=== PATIENT | male | born 1950 | race Caucasian/White ===

== ENCOUNTER 2018-09-24 11:07 | Emergency (ER) | payer BC, MEDICARE ==
[2018-09-24 11:07] LABS: ABSOLUTE LYMPHOCYTES (AUTO) 0.7 10^3/uL (0.5-4.7); ABSOLUTE MONOCYTES (AUTO) 0.7 10^3/uL (0.1-1.4); ABSOLUTE NEUT (AUTO) 5.4 10^3/uL (1.7-8.2); BASOPHILS % (AUTO) 0.6 % (0-2); LYMPHOCYTES % (AUTO) 10.5 % (13-45); MEAN CORPUSCULAR HEMOGLOBIN 29.6 pg (27.0-33.4); MEAN CORPUSCULAR VOLUME 85 fl (80-97); MONOCYTES % (AUTO) 9.7 % (3-13); PLATELET COUNT 194 10^3/uL (150-450); RED BLOOD COUNT 4.73 10^6/uL (4.35-5.55); RED CELL DISTRIBUTION WIDTH 14.5 % (11.5-14.0); SEGMENTED NEUTROPHILS % (AUTO) 79.2 % (42-78); TOTAL CELLS COUNTED % (AUTO) 100 %; WHITE BLOOD COUNT 6.8 10^3/uL (4.0-10.5)
[2018-09-24 11:27] LABS: ALANINE AMINOTRANSFERASE 66 U/L (21-72); ALBUMIN 4.2 g/dL (3.5-5.0); ALKALINE PHOSPHATASE 47 U/L (38-126); ANION GAP 9 (5-19); ASPARTATE AMINO TRANSFERASE 39 U/L (17-59); BILIRUBIN,DIRECT 0.3 mg/dL (0.0-0.4); BILIRUBIN,TOTAL 1.4 mg/dL (0.2-1.3); BLOOD UREA NITROGEN 19 mg/dL (7-20); CALCIUM 9.3 mg/dL (8.4-10.2); CARBON DIOXIDE 26 mmol/L (22-30); CHLORIDE 98 mmol/L (98-107); GLUCOSE 117 mg/dL (75-110); POTASSIUM 4.2 mmol/L (3.6-5.0); SODIUM 133.4 mmol/L (137-145); TOTAL PROTEIN 6.7 g/dL (6.3-8.2)
[2018-09-24] MEDS ORDERED: ONDANSETRON HCL INJ/PF 4 MG/2 ML SDV IV ONE (11:48)
--- NOTE | 2018-09-24 11:48 | ER Document Report ---
ED Medical Screen (RME) - General Chief Complaint: Nausea/Vomiting Stated Complaint: NAUSEA Time Seen by Provider: 09/24/18 11:36 TRAVEL OUTSIDE OF THE [place] IN LAST 30 DAYS: No - HPI Notes: 09/24/18 11:45 Patient is a 67-year-old male with a history of hypertension and anxiety who presents to the emergency department complaining of fatigue, weakness, nausea/vomiting, decreased p.o. intake, intermittent fever/headache over the past 5 days. Patient states that he is not urinating as much but is still having bowel movements. He was able to keep down chicken noodle soup yesterday. Patient is a surgical history of cholecystectomy. Denies drug allergies. Denies neck pain, URI, CP, SOB, Abd pain, or rash. I have treated and performed a rapid initial assessment of this patient. A comprehensive ED assessment and evaluation of the patient, analysis of test results and completion of medical decision making process will be conducted by additional ED providers. PHYSICAL EXAMINATION: GENERAL: Well-appearing, well-nourished and in no acute distress. A&Ox4. Answers questions appropriately. LUNGS: Breath sounds clear to auscultation bilaterally and equal. No wheezes rales or rhonchi. HEART: Regular rate and rhythm without murmurs, rubs, gallops. ABDOMEN: Soft, nondistended abdomen. No guarding, no rebound. Normal bowel sounds present. No CVA tenderness bilaterally. Non-tender (cannot elicit thorough abd exam w/o table, however). Extremities: No cyanosis, clubbing, or edema b/l. NEUROLOGICAL: Normal speech, normal gait. Cranial nerves grossly intact. PSYCH: Normal mood, normal affect. - Related Data Allergies/Adverse Reactions: No Known Allergies Allergy (Verified 09/24/18 11:10) Past Medical History - Social History Frequency of alcohol use: Social Drug Abuse: None - Past Medical History Cardiac Medical History: Reports: Hx Hypertension Renal/ Medical History: Denies: Hx Peritoneal Dialysis Psychiatric Medical History: Reports: Hx Depression Past Surgical History: Reports: Hx Cholecystectomy, Hx Orthopedic Surgery - right wrist, right hand 4th digit mass removal Physical Exam - Vital signs Vitals: Temp Pulse Resp BP Pulse Ox 99.0 F 78 17 136/70 H 99 09/24/18 11:19 09/24/18 11:19 09/24/18 11:19 09/24/18 11:19 09/24/18 11:19 Course - Vital Signs Vital signs: Temp Pulse Resp BP Pulse Ox 99.0 F 78 17 136/70 H 99 09/24/18 11:19 09/24/18 11:19 09/24/18 11:19 09/24/18 11:19 09/24/18 11:19 - Laboratory Result Diagrams: 09/24/18 10:48 09/24/18 10:48 Laboratory results interpreted by me: 09/24/18 09/24/18 10:48 10:48 RDW 14.5 H Seg Neutrophils % 79.2 H Lymphocytes % 10.5 L Sodium 133.4 L Glucose 117 H Total Bilirubin 1.4 H
--- NOTE | 2018-09-24 12:22 | RADIOLOGY REPORT (SQ) ---
EXAM DESCRIPTION: CHEST 2 VIEWS COMPLETED DATE/TIME: 09/24/2018 11:55 am REASON FOR STUDY: intermittent fever COMPARISON: None. EXAM PARAMETERS: NUMBER OF VIEWS: two views TECHNIQUE: Digital Frontal and Lateral radiographic views of the chest acquired. RADIATION DOSE: NA LIMITATIONS: none FINDINGS: LUNGS AND PLEURA: No opacities, masses or pneumothorax. No pleural effusion. MEDIASTINUM AND HILAR STRUCTURES: No masses or contour abnormalities. HEART AND VASCULAR STRUCTURES: Heart normal size. No evidence for failure. BONES: No acute findings. HARDWARE: None in the chest. OTHER: No other significant finding. IMPRESSION: NO ACUTE RADIOGRAPHIC FINDING IN THE CHEST. TECHNICAL DOCUMENTATION: JOB ID: [id number] [employer]- All Rights Reserved Reading location - IP/workstation name: [email or web address]
[2018-09-24] MEDS: NORMAL SALINE 1000 ML 1,000 ML IV PRN ×2 (12:48→14:15)
[2018-09-24 13:04] LABS: APPEARANCE,URINE SLIGHTLY-CLOUDY; BILIRUBIN,URINE NEGATIVE (NEGATIVE); COLOR,URINE DARK YELLOW; GLUCOSE, URINE NEGATIVE (NEGATIVE); KETONES,URINE TRACE mg/dL (NEGATIVE); LEUKOCYTE ESTERASE,URINE NEGATIVE (NEGATIVE); NITRITE,URINE NEGATIVE (NEGATIVE); PROTEIN,URINE 30 mg/dL (NEGATIVE); URINE SPECIFIC GRAVITY 1.026
--- NOTE | 2018-09-24 13:17 | RADIOLOGY REPORT (SQ) ---
EXAM DESCRIPTION: CT HEAD WITHOUT COMPLETED DATE/TIME: 09/24/2018 12:40 pm REASON FOR STUDY: headache R11.2 NAUSEA WITH VOMITING, UNSPECIFIED R51 HEADACHE R50.9 FEVER, UNSP ECIFIED COMPARISON: None. TECHNIQUE: Axial images acquired through the brain without intravenous contrast. Images reviewed wi th bone, brain and subdural windows. Additional sagittal and coronal reconstructions were generated. Images stored on PACS. All CT scanners at this facility use dose modulation, iterative reconstruction, and/or weight based d osing when appropriate to reduce radiation dose to as low as reasonably achievable (ALARA). [facility]: Dose Right [facility]: CareDose [facility]: Dose Right [facility]: Teradose 4D [facility]: [employer] RADIATION DOSE: CT Rad equipment meets quality standard of care and radiation dose reduction techniq ues were employed. CTDIvol: 53.2 mGy. DLP: 1230 mGy-cm.. LIMITATIONS: None. FINDINGS: VENTRICLES: Mildly prominent, commensurate with the sulci. The cisterns are patent. CEREBRUM: No masses. No hemorrhage. No midline shift. No evidence for acute infarction. Normal gra y/white matter differentiation. No areas of low density in the white matter. CEREBELLUM: A low attenuated area in the lateral aspect of the right cerebellar hemisphere, probably represents remote changes related to the patient's given history of removal of posterior fossa mass. No masses. No hemorrhage. No evidence for acute infarction. EXTRAAXIAL SPACES: No fluid collections. No masses. ORBITS AND GLOBE: No intra- or extraconal masses. Normal contour of globe without masses. CALVARIUM: Post surgical changes with metallic plate and screws, posterior fossa on the left. PARANASAL SINUSES: Mild mucoperiosteal thickening ethmoid sinuses. Mucous retention cyst or polyps in the bilateral maxillary sinuses. No air-fluid levels. Soft tissue density partially obscures the bilateral maxillary infundibulum, may be on an inflammatory basis. SOFT TISSUES: No mass or hematoma. OTHER: No other significant finding. IMPRESSION: 1. No acute intracranial abnormality. 2. Post surgical changes with hardware right posterior fossa. A low attenuated area in the lateral aspect of the right cerebellar hemisphere, probably represents remote changes related to the patient' s given history of removal of posterior fossa mass. 3. Chronic ethmoid sinus disease. Bilateral maxillary sinus mucous retention cysts or polyps. EVIDENCE OF ACUTE STROKE: NO. COMMENT: Quality ID # [id number]: Final reports with documentation of one or more dose reduction techniques (e.g., Automated exposure control, adjustment of the mA and/or kV according to patient size, use of iterative reconstruction technique) TECHNICAL DOCUMENTATION: JOB ID: [id number] [employer]- All Rights Reserved Reading location - IP/workstation name: [email or web address]
[2018-09-24] MEDS ORDERED: ACETAMINOPHEN 325 MG TABLET ONE (13:41)
--- NOTE | 2018-09-24 14:09 | ER Document Report ---
ED General - General Chief Complaint: Nausea/Vomiting Stated Complaint: NAUSEA Time Seen by Provider: 09/24/18 11:36 Primary Care Provider: EVA POMPA MD [ACTIVE STAFF] - Follow up in 3-5 days (or your primary care) Notes: Patient is a 67-year-old male that presents to the emergency department for chief complaint of generalized weakness. Patient reports that he has been having nausea and vomiting past couple days, and it started this past Monday, has been overall feeling weaker, and feel that he is getting dehydrated, he said some decrease in his urination, and seem to be darker as well. Denies having any associated abdominal pain or diarrhea with this. He denies having any chest pain, shortness of breath or difficulty breathing. He did have somewhat of a mild headache, but that is since resolved after he received some fluids from triage. Past Medical History: Anxiety Past Surgical History: Brain surgery 3 years ago for meningioma Social History: Denies tobacco, alcohol or drug use. Family History: Reviewed and noncontributory for presenting illness Allergies: Reviewed, see documented allergy list. REVIEW OF SYSTEMS: Other than noted above, the 12 point review of systems was reviewed with the patient and were negative, all pertinent findings are included in the HPI. PHYSICAL EXAMINATION: Vital signs reviewed, nursing noted reviewed. GENERAL: Well-appearing, well-nourished and in no acute distress. HEAD: Atraumatic, normocephalic. EYES: Eyes appear normal, extraocular movements intact, sclera anicteric, conjunctiva are normal. ENT: nares patent, oropharynx clear without exudates. Moist mucous membranes. NECK: Normal range of motion, supple without lymphadenopathy LUNGS: Breath sounds clear to auscultation bilaterally and equal. No wheezes rales or rhonchi. HEART: Regular rate and rhythm without murmurs ABDOMEN: Soft, nontender, normoactive bowel sounds. No rebound, guarding, or rigidity. No masses appreciated. EXTREMITIES: Nontender, good range of motion, no pitting or edema. NEUROLOGICAL: No focal neurological deficits. Moves all extremities spontan eously Motor and sensory grossly intact on exam. PSYCH: Normal mood, normal affect. SKIN: Warm, Dry, normal turgor, no rashes or lesions noted on exposed skin TRAVEL OUTSIDE OF THE [place] IN LAST 30 DAYS: No - Related Data Allergies/Adverse Reactions: No Known Allergies Allergy (Verified 09/24/18 11:10) Past Medical History - Social History Smoking Status: Never Smoker Frequency of alcohol use: Social Drug Abuse: None Family History: Reviewed & Not Pertinent Patient has suicidal ideation: No Patient has homicidal ideation: No - Past Medical History Cardiac Medical History: Reports: Hx Hypertension Renal/ Medical History: Denies: Hx Peritoneal Dialysis Psychiatric Medical History: Reports: Hx Depression Past Surgical History: Reports: Hx Cholecystectomy, Hx Orthopedic Surgery - right wrist, right hand 4th digit mass removal Physical Exam - Vital signs Vitals: Temp Pulse Resp BP Pulse Ox 99.0 F 78 17 136/70 H 99 09/24/18 11:19 09/24/18 11:19 09/24/18 11:19 09/24/18 11:19 09/24/18 11:19 Course - Re-evaluation Re-evalutation: Patient seen and examined vital signs reviewed. Laboratory data and/or imaging were ordered as appropriate for the patient's presenting symptoms and complaint, with consideration of any critical or life threatening conditions that may be associated with their obtained history and exam as noted above. Patient was treated with IV fluids Results were reviewed when available and demonstrated unremarkable workup with exception of a mild hyponatremia, and concentrated urine, consistent with dehydration The patient was re-evaluated and was improved, after fluid treatment Evaluation was most consistent with mild dehydration without acute kidney injury, patient was improved after treatment, likely related to his nausea and vomiting that he was having, advised strict return precautions and follow-up with a primary care physician. Results were discussed with the patient at this point, after careful consideration I feel that that patient can be discharged from the emergency department, the patient was educated treatments and reasons to return to the emergency department based on their presumed diagnosis as noted above, they were advised to followup with a primary care physician in 2-3 days. Patient was agree able to plan of care. *Note is created using voice recognition software and may contain spelling, s yntax or grammatical errors. Laboratory 09/24/18 09/24/18 09/24/18 10:48 10:48 10:48 WBC 6.8 RBC 4.73 Hgb 14.0 Hct 40.0 MCV 85 MCH 29.6 MCHC 35.0 RDW 14.5 H Plt Count 194 Seg Neutrophils % 79.2 H Lymphocytes % 10.5 L Monocytes % 9.7 Eosinophils % 0.0 Basophils % 0.6 Absolute Neutrophils 5.4 Absolute Lymphocytes 0.7 Absolute Monocytes 0.7 Absolute Eosinophils 0.0 Absolute Basophils 0.0 Sodium 133.4 L Potassium 4.2 Chloride 98 Carbon Dioxide 26 Anion Gap 9 BUN 19 Creatinine 1.16 Est GFR ( Amer) > 60 Est GFR (Non-Af Amer) > 60 Glucose 117 H Calcium 9.3 Total Bilirubin 1.4 H Direct Bilirubin 0.3 Neonat Total Bilirubin Not Reportable Neonat Direct Bilirubin Not Reportable Neonat Indirect Bili Not Reportable AST 39 ALT 66 Alkaline Phosphatase 47 Total Protein 6.7 Albumin 4.2 Lipase 126.1 TSH Urine Color Urine Appearance Urine pH Ur Specific [place] Urine Protein Urine Glucose (UA) Urine Ketones Urine Blood Urine Nitrite Urine Bilirubin Urine Urobilinogen Ur Leukocyte Esterase Urine WBC (Auto) Urine RBC (Auto) U Hyaline Cast (Auto) Urine Mucus (Auto) Urine Ascorbic Acid 09/24/18 09/24/18 10:48 12:06 WBC RBC Hgb Hct MCV MCH MCHC RDW Plt Count Seg Neutrophils % Lymphocytes % Monocytes % Eosinophils % Basophils % Absolute Neutrophils Absolute Lymphocytes Absolute Monocytes Absolute Eosinophils Absolute Basophils Sodium Potassium Chloride Carbon Dioxide Anion Gap BUN Creatinine Est GFR ( Amer) Est GFR (Non-Af Amer) Glucose Calcium Total Bilirubin Direct Bilirubin Neonat Total Bilirubin Neonat Direct Bilirubin Neonat Indirect Bili AST ALT Alkaline Phosphatase Total Protein Albumin Lipase TSH 1.69 Urine Color DARK YELLOW Urine Appearance SLIGHTLY-CLOUDY Urine pH 5.0 Ur Specific [place] 1.026 Urine Protein 30 H Urine Glucose (UA) NEGATIVE Urine Ketones TRACE H Urine Blood NEGATIVE Urine Nitrite NEGATIVE Urine Bilirubin NEGATIVE Urine Urobilinogen 2.0 H Ur Leukocyte Esterase NEGATIVE Urine WBC (Auto) 4 Urine RBC (Auto) 4 U Hyaline Cast (Auto) 4 Urine Mucus (Auto) MANY Urine Ascorbic Acid 20 H Chest X-Ray 09/24/18 11:43 IMPRESSION: NO ACUTE RADIOGRAPHIC FINDING IN THE CHEST. Head CT 09/24/18 11:59 IMPRESSION: 1. No acute intracranial abnormality. 2. Post surgical changes with hardware right posterior fossa. A low attenuated area in the lateral aspect of the right cerebellar hemisphere, probably represents remote changes related to the patient's given history of removal of posterior fossa mass. 3. Chronic ethmoid sinus disease. Bilateral maxillary sinus mucous retention cysts or polyps. EVIDENCE OF ACUTE STROKE: NO. - Vital Signs Vital signs: Temp Pulse Resp BP Pulse Ox 99.0 F 78 16 129/71 H 97 09/24/18 15:13 09/24/18 11:19 09/24/18 15:00 09/24/18 15:00 09/24/18 15:00 - Laboratory Result Diagrams: 09/24/18 10:48 09/24/18 10:48 Laboratory results interpreted by me: 09/24/18 09/24/18 09/24/18 10:48 10:48 12:06 RDW 14.5 H Seg Neutrophils % 79.2 H Lymphocytes % 10.5 L Sodium 133.4 L Glucose 117 H Total Bilirubin 1.4 H Urine Protein 30 H Urine Ketones TRACE H Urine Urobilinogen 2.0 H Urine Ascorbic Acid 20 H - EKG Interpretation by Me Additional EKG results interpreted by me: EKG demonstrates sinus rhythm with a ventricular rate of 73 bpm, normal axis, normal intervals, no evidence of acute ischemia in this EKG, no prior for comparison. Discharge - Discharge Clinical Impression: Dehydration Condition: Stable Disposition: HOME, SELF-CARE Instructions: Dehydration (OM) Additional Instructions: Please take the prescribed medication if needed for nausea, and to maintain your hydration. Please return to the emergency department if you have any worsening, or concern of your symptoms. Please return to the emergency department if you develop chest pain, difficulty breathing, severe abdominal pain, or ongoing vomiting. Please follow-up with your primary care physician in 2-3 days and any other recommended physicians. If prescribed, take all medications as directed. If you have any questions or concerns do not hesitate to return the emergency department for evaluation. Prescriptions: Ondansetron [Zofran Odt 4 mg Tablet] 1 tab PO Q8H PRN #15 tab.rapdis PRN Reason: For Nausea/Vomiting Referrals: EVA POMPA MD [ACTIVE STAFF] - Follow up in 3-5 days (or your primary care)
[2018-09-24 15:17] VITALS: BP 129/71
--- NOTE | 2018-09-24 20:05 | EKG REPORT ---
SEVERITY:- NORMAL ECG - SINUS RHYTHM : Confirmed by: Roxy Rogers MD 24-Sep-2018 20:03:15
== END 2018-09-24 15:21 | disposition home or self-care (01) ==
LOC: ER 11:07 → EDSTATUS 11:07 → ER 15:21
DX: E86.0 Dehydration (principal); R11.2 Nausea with vomiting, unspecified; R51 Headache; R50.9 Fever, unspecified; R53.1 Weakness; I10 Essential (primary) hypertension
CPT/HCPCS: 93005; 99284; 96361; 96374; 36415; 83690; 84443; 85025; 80053; 81001; 71046; 70450; 93010; J2405; J7030

== ENCOUNTER 2018-09-26 00:31 | Inpatient (IN) | payer BC, MEDICARE ==
[2018-09-26] MEDS ORDERED: NORMAL SALINE 1000 ML 1,000 ML IV ONE ×2 (00:35→04:51)
[2018-09-26] MEDS ORDERED: DIAZEPAM INJ 10 MG/2 ML DISP.SYRIN IV ONE (01:08)
[2018-09-26] MEDS ORDERED: ONDANSETRON HCL INJ/PF 4 MG/2 ML SDV IV ONE (01:08)
[2018-09-26 01:25] LABS: ABSOLUTE LYMPHOCYTES (AUTO) 0.8 10^3/uL (0.5-4.7); ABSOLUTE MONOCYTES (AUTO) 0.9 10^3/uL (0.1-1.4); ABSOLUTE NEUT (AUTO) 4.4 10^3/uL (1.7-8.2); BASOPHILS % (AUTO) 0.8 % (0-2); EOSINOPHILS % (AUTO) 0.1 % (0-6); HEMATOCRIT 38.8 % (37.9-51.0); HEMOGLOBIN 13.6 g/dL (13.5-17.0); LYMPHOCYTES % (AUTO) 13.6 % (13-45); MEAN CORPUSCULAR HEMOGLOBIN 29.7 pg (27.0-33.4); MEAN CORPUSCULAR VOLUME 85 fl (80-97); MONOCYTES % (AUTO) 14.1 % (3-13); PLATELET COUNT 177 10^3/uL (150-450); RED BLOOD COUNT 4.58 10^6/uL (4.35-5.55); RED CELL DISTRIBUTION WIDTH 14.3 % (11.5-14.0); SEGMENTED NEUTROPHILS % (AUTO) 71.4 % (42-78); TOTAL CELLS COUNTED % (AUTO) 100 %; WHITE BLOOD COUNT 6.1 10^3/uL (4.0-10.5)
[2018-09-26 01:27] LABS: VENOUS BLOOD BASE EXCESS 4.5 mmol/L; VENOUS BLOOD HCO3 29.6 mmol/L (20-32); VENOUS BLOOD PCO2 45.7 mmHg (35-63); VENOUS BLOOD PH 7.43 (7.30-7.42)
[2018-09-26 01:30] LABS: INTERNATIONAL RATION (INR) 1.09; PROTHROMBIN TIME 14.7 SEC (11.4-15.4)
[2018-09-26 01:46] LABS: ALANINE AMINOTRANSFERASE 70 U/L (21-72); ALBUMIN 4.1 g/dL (3.5-5.0); ALKALINE PHOSPHATASE 37 U/L (38-126); ANION GAP 8 (5-19); ASPARTATE AMINO TRANSFERASE 52 U/L (17-59); BILIRUBIN,DIRECT 0.4 mg/dL (0.0-0.4); BILIRUBIN,TOTAL 1.5 mg/dL (0.2-1.3); BLOOD UREA NITROGEN 17 mg/dL (7-20); CALCIUM 8.9 mg/dL (8.4-10.2); CARBON DIOXIDE 28 mmol/L (22-30); CHLORIDE 94 mmol/L (98-107); GLUCOSE 127 mg/dL (75-110); POTASSIUM 3.8 mmol/L (3.6-5.0); TOTAL PROTEIN 6.9 g/dL (6.3-8.2)
--- NOTE | 2018-09-26 01:46 | RADIOLOGY REPORT (SQ) ---
EXAM DESCRIPTION: XR CHEST 1 VIEW COMPLETED DATE/TME: 09/26/2018 00:00 CLINICAL HISTORY: 67 years, Male, fever COMPARISON: 09/24/2018 chest x-ray NUMBER OF VIEWS: 1 TECHNIQUE: Portable chest LIMITATIONS: None. FINDINGS: Heart size at upper limits of normal. Lungs are clear. No pneumothorax IMPRESSION: No acute cardiopulmonary process copyright 2010 [employer]- All Rights Reserved
[2018-09-26 02:10] LABS: APPEARANCE,URINE CLEAR; BILIRUBIN,URINE NEGATIVE (NEGATIVE); COLOR,URINE YELLOW; GLUCOSE, URINE NEGATIVE (NEGATIVE); KETONES,URINE TRACE mg/dL (NEGATIVE); LEUKOCYTE ESTERASE,URINE NEGATIVE (NEGATIVE); NITRITE,URINE NEGATIVE (NEGATIVE); PROTEIN,URINE NEGATIVE (NEGATIVE); URINE SPECIFIC GRAVITY 1.017
--- NOTE | 2018-09-26 02:15 | ER Document Report ---
ED General - General Chief Complaint: Fever Stated Complaint: VOMITING,SHAKING,FEVER Time Seen by Provider: 09/26/18 00:54 Notes: Patient is a pleasant 67-year-old male who presents with complaints of fevers. He had fevers approximately 5 days ago. Was seen here 2 days ago for headache some intermittent fever. Patient had a CT scan performed of his head but she does have a history of a previous glioma removal that occurred 3 or [address] scan at that time did not show any acute changes. Patient's vomiting improved and received IV fluids and was doing well and therefore discharged home. says that he has had recurrent vomiting since then and is not improving and appears to be getting worse and at times will seem a little bit confused. He is also developed a tremor. Patient does not have any history of alcohol use except for just an occasional drink 1-2 times a month. He only takes 2 medications. One is for blood pressure another one is for anxiety. He is otherwise very healthy person. He currently says that his headache is almost completely improved in comparison to where it was 2 days ago. He says he still has very slight bandlike pain around his head. He denies any neck pain or neck stiffness. He denies any weakness or numbness into his extremities. He denies any abdominal pain. He denies any cough or congestion. TRAVEL OUTSIDE OF THE [place] IN LAST 30 DAYS: No - Related Data Allergies/Adverse Reactions: No Known Allergies Allergy (Verified 09/26/18 00:31) Past Medical History - Social History Smoking Status: Never Smoker Chew tobacco use (# tins/day): No Frequency of alcohol use: Occasional Drug Abuse: None Family History: Reviewed & Not Pertinent Patient has suicidal ideation: No Patient has homicidal ideation: No - Past Medical History Cardiac Medical History: Reports: Hx Hypertension Renal/ Medical History: Denies: Hx Peritoneal Dialysis Psychiatric Medical History: Reports: Hx Depression Past Surgical History: Reports: Hx Cholecystectomy, Hx Orthopedic Surgery - right wrist, right hand 4th digit mass removal Review of Systems - Review of Systems Notes: My Normal Review Basic REVIEW OF SYSTEMS: CONSTITUTIONAL : Denies fever, chills, or sweats. Denies recent illness. EENT: Denies eye, ear, throat, or mouth pain or symptoms. Denies nasal or sinus congestion. CARDIOVASCULAR: Denies chest pain. RESPIRATORY: Denies cough, cold, or chest congestion. Denies shortness of breath, difficulty breathing, or wheezing. GASTROINTESTINAL: Denies abdominal pain. Recurrent vomiting GENITOURINARY: Denies difficulty urinating, painful urination, burning, frequency, or blood in urine. MUSCULOSKELETAL: Denies neck or back pain or joint pain or swelling. SKIN: Denies rash or skin lesions. HEMATOLOGIC : Denies easy bruising or bleeding. NEUROLOGICAL: says that he has had some intermittent mild confusion over the last 24 hours. Has a mild headache. Denies weakness or paralysis or loss of use of either side. Denies problems with gait or speech. Denies sensory or motor loss. ALL OTHER SYSTEMS REVIEWED AND NEGATIVE. Physical Exam - Vital signs Vitals: Temp Pulse Resp BP Pulse Ox 98.2 F 95 18 148/86 H 90 L 09/26/18 00:40 09/26/18 00:40 09/26/18 00:40 09/26/18 00:40 09/26/18 00:40 - Notes Notes: General Appearance: Well nourished, alert, cooperative, no acute distress, no obvious discomfort. Patient has ongoing tremor. Vitals: reviewed, See vital signs table. Head: no swelling or tenderness to the head Eyes: PERRL, EOMI, Conjuctiva clear Mouth: No decreasd moisture Throat: No tonsillar inflammation, No airway obstruction, No lymphadenopathy Neck: Supple, no neck tenderness, range of motion of the neck without pain or stiffness. Lungs: No wheezing, No rales, No rhonci, No accessory muscle use, good air exchange bilaterally. Heart: Normal rate, Regular rythm, No murmur, no rub Abdomen: Normal BS, soft, No rigidity, No abdominal tenderness, No guarding, no rebound, no abdominal masses, no organomegaly Extremities: strength 5/5 in all extremities, good pulses in all extremities, no swelling or tenderness in the extremities, no edema. Skin: warm, dry, appropriate color, no rash Neuro: speech clear, oriented x 3, normal affect, responds appropriately to questions. No nerves II through XII are intact. Distal sensation intact. Patient moves all extremities without difficulty. Course - Re-evaluation Re-evalutation: 09/26/18 02:24 Reevaluation patient still has significant tremor. His labs so far are unremarkable. He does have some mottling around the knees however he has no pain in his knees. He has no mottling anywhere else. I have ordered coags as well as CRP and ESR. I did speak to the patient's son who is a surgery fellow at [employer]. He just request that we obtain a noncontrast CT scan of the abdomen. Patient does not have any abdominal pain however he has had recurrent vomiting I do not have a source of what is causing his infection and vomiting therefore I think this is appropriate and we will go forward with a CT scan. 09/26/18 03:37 On reevaluation patient continues to have the tremor. His CT scan is negative. His ESR, CRP, and coags are negative. says that he started to show some signs of confusion and that he asked if they are going to go see their daughter and he asked if he would of the brain surgery. When I asked patient about this he does not member saying this. He still able in all normal conversation with being that there are some signs of some mental status I will repeat a CT scan of his head. If this is negative then I will go forward with a lumbar puncture to rule out encephalitis. 09/26/18 04:55 Was unable to obtain lumbar puncture. I attempted 3 times and was unable to get return of CSF. Patient was able to stay still and cooperate well during this. I will cover him with acyclovir as well as Rocephin. I do not suspect bacterial meningitis based on the fact that he has been sick now for several days; however it still possible and therefore I am covering with Rocephin. I suspect to be more likely that he would have an encephalitis based on him started become more confused gradually. His increased confusion possibly related to the fact that he is spiking higher fever. We have given Tylenol. I will give him a small dose of Toradol through the IV. I will speak with the hospitalist about admission and at that time they can retry a lumbar puncture under fluoroscopy when in which radiology is here during the daytime. Patient may benefit from MRI of the head being that CT scan has been negative if he needs to have recurrent altered mental status. Discussed the plan with the patient's and she is agreeable to. Also spoke with the patient's son who is a surgery fellow at [employer] in [place]. Explained test results thus far and plan of admission with him as well. Dictation of this chart was performed using voice recognition software; therefore, there may be some unintended grammatical errors. 09/26/18 06:13 09/26/18 06:14 - Vital Signs Vital signs: Temp Pulse Resp BP Pulse Ox 98.3 F 95 16 128/76 H 94 09/26/18 05:37 09/26/18 00:40 09/26/18 06:01 09/26/18 06:01 09/26/18 06:01 - Laboratory Result Diagrams: 09/26/18 01:05 09/26/18 01:05 Laboratory results interpreted by me: 09/26/18 09/26/18 09/26/18 01:05 01:05 01:05 RDW 14.3 H Monocytes % 14.1 H VBG pH 7.43 H Sodium 130.0 L Chloride 94 L Glucose 127 H Total Bilirubin 1.5 H Alkaline Phosphatase 37 L Urine Ketones Urine Blood Urine Urobilinogen 09/26/18 01:55 RDW Monocytes % VBG pH Sodium Chloride Glucose Total Bilirubin Alkaline Phosphatase Urine Ketones TRACE H Urine Blood SMALL H Urine Urobilinogen 4.0 H - EKG Interpretation by Me Additional EKG results interpreted by me: 09/26/18 02:14 EKG is reviewed and interpreted by me. EKG shows sinus rhythm with a rate of [address] segment elevation or depression. No ischemic T wave inversions. OK interval, QRS duration are within normal range. QT interval is borderline. Old EKG for comparison is from September 24, 2018. Procedures - Lumbar Puncture Lumbar puncture Consent obtained: No Patient position: Lying Needle size: 25 Lumbar puncture location: L4- L5, L3- L4 Anesthetic type: 1% Lidocaine mL's of anesthetic: 4 Amount/type of drainage: none Number of attempts: 3 Complications: No Discharge - Discharge Clinical Impression: Fever Qualifiers: Fever type: unspecified Qualified Code(s): R50.9 - Fever, unspecified Altered mental status Qualifiers: Altered mental status type: delirium Qualified Code(s): R41.0 - Disorientation, unspecified Vomiting Qualifiers: Vomiting type: unspecified Vomiting Intractability: non-intractable Nausea presence: with nausea Qualified Code(s): R11.2 - Nausea with vomiting, unspecified Condition: Stable Disposition: ADMITTED INPATIENT Admitting Provider: Ishmael (Hospitalist) Unit Admitted: [facility]
--- NOTE | 2018-09-26 03:09 | RADIOLOGY REPORT (SQ) ---
EXAM DESCRIPTION: CT ABDOMEN PELVIS WITHOUT IV CONTRAST COMPLETED DATE/TME: 09/26/2018 02:23 CLINICAL HISTORY: 67 years, Male, recurrent vomiting COMPARISON: None. TECHNIQUE: 378 Images stored on PACS. All CT scanners at this facility use dose modulation, iterative reconstruction, and/or weight based dosing when appropriate to reduce radiation dose to as low as reasonably achievable (ALARA). [facility]: Dose Right [facility]: CareDose [facility]: Dose Right [facility]: Teradose 4D [facility]: [employer] LIMITATIONS: None. FINDINGS: Limited evaluation of the lung bases demonstrates tiny bibasilar pleural effusions. Osseous structures are grossly intact. Motion artifact degrades image quality. Small hiatal hernia. Limited evaluation of the liver, spleen, adrenal glands, pancreas, kidneys is unremarkable. Presumed cholecystectomy. No gross evidence for bowel obstruction. Large amount stool in the colon. No free air or free fluid. Normal appendix. IMPRESSION: Abundant stool in the colon. Small hiatal hernia. TECHNICAL DOCUMENTATION: Quality ID # 436: Final reports with documentation of one or more dose reduction techniques (e.g., Automated exposure control, adjustment of the mA and/or kV according to patient size, use of iterative reconstruction technique) copyright 2010 [employer]- All Rights Reserved
[2018-09-26] MEDS ORDERED: LORAZEPAM INJ 2 MG/1 ML VIAL IV ONE (03:36)
[2018-09-26] MEDS ORDERED: ACETAMINOPHEN 325 MG TABLET PO ONE (03:49)
--- NOTE | 2018-09-26 04:25 | RADIOLOGY REPORT (SQ) ---
CT head without contrast on 09/26/2018 at 3:56 AM CLINICAL INDICATION: Fever, confusion TECHNIQUE: Multiple axial images are obtained throughout the head without the administration of contrast. This exam was performed according to our departmental dose-optimization program, which includes automated exposure control, adjustment of the mA and/or kV according to patient size and/or use of iterative reconstruction technique. Total DLP is 2333.64 mGy*cm. COMPARISON: 09/24/2018 FINDINGS: The patient is again noted be status post prior right occipital craniotomy. There is a stable small area of encephalomalacia underlying the craniotomy site likely postoperative in nature. There is no hydrocephalus. There is no CT evidence of acute infarct. There is no hemorrhage. There are no abnormal extra-axial fluid collections. There is no mass, mass effect or midline shift. Small mucous retention cysts are noted in the maxillary sinuses. No bony abnormality is noted. IMPRESSION: No acute intracranial abnormality.
[2018-09-26] MEDS ORDERED: ACYCLOVIR SODIUM INJ/PF 500 MG/10 ML SDV IV ONE (04:51)
[2018-09-26] MEDS ORDERED: VANCOMYCIN HCL INJ 1000 MG VIAL IV ONE (04:52)
[2018-09-26] MEDS ORDERED: CEFTRIAXONE 2 GM/D5W RTU 2 GM/50 ML RTUPB IV ONE (04:52)
[2018-09-26] MEDS ORDERED: KETOROLAC TROMETHAMINE INJ/PF 30 MG/1 ML SDV IV ONE (04:55)
[2018-09-26] MEDS ORDERED: MAGNESIUM HYDROXIDE SUSP 30 ML UDCUP PO PRN (05:48)
[2018-09-26] MEDS ORDERED: MAG HYDROX/AL HYDROX/SIMETH SUSP 30 ML UDCUP PO PRN (05:48)
[2018-09-26] MEDS ORDERED: ONDANSETRON HCL INJ/PF 4 MG/2 ML SDV IV PRN (05:48)
[2018-09-26] MEDS ORDERED: TEMAZEPAM 15 MG CAPSULE PO PRN (05:48)
[2018-09-26 05:50] LABS: A TYPE INFLUENZA AG NEGATIVE (NEGATIVE); B INFLUENZA AG NEGATIVE (NEGATIVE)
[2018-09-26] MEDS ORDERED: ACYCLOVIR SODIUM INJ/PF 500 MG/10 ML SDV IV SCH (06:00)
[2018-09-26] MEDS ORDERED: MORPHINE SULFATE 10 MG/ML INJ IV PRN (06:03)
[2018-09-26] MEDS ORDERED: VANCOMYCIN HCL INJ 1000 MG VIAL IV PRN (06:19)
[2018-09-26] MEDS ORDERED: ACYCLOVIR SODIUM INJ/PF 500 MG/10 ML SDV IV PRN (06:21)
[2018-09-26] MEDS ORDERED: VANCOMYCIN HCL 2,000 MG in DEXTROSE 5%-WATER 500 ML IV ONE (06:30)
[2018-09-26] MEDS ORDERED: DEXTROSE 5%-LACTATED RINGERS 1,000 ML IV PRN (06:31)
--- NOTE | 2018-09-26 06:41 | PDOC H&P ---
History of Present Illness Admission Date/PCP: 09/26/2018 No local PCP Patient complains of: Fever History of Present Illness: CARSON WOODSON is a 67 year old male who re-presented to the emergency room after a visit 2 days ago with continued fever which is been present in total times 5 days. Patient admits that his fever has been severe (as high as approximately 104 F) and has been accompanied by severe nausea and vomiting as well as moderate delirium at the heights of his fever. He has been unable to keep down any fluids or solids for the last 48 hours prior to his admission. He denies prior similar episodes and has not identified any aggravating or ameliorating factors for his fever. In the emergency room he was found to have an essentially negative evaluation but a lumbar puncture attempt failed and the patient was initiated on treatment for possible encephalitis/meningitis in the emergency room and this will need to be continued until such time as a lumbar puncture can be accomplished with fluoroscopy and cerebrospinal fluid can be evaluated. Blood cultures are pending at the present time. Patient was therefore admitted to the hospital for further evaluation and treatment in light of his recently failed outpatient therapy. Past Medical History Cardiac Medical History: Reports: Hypertension Denies: Atrial Fibrillation, Congestive Heart Failure, Coronary Artery Disease, DVT, Pulmonary Embolism Pulmonary Medical History: Denies: Asthma, Chronic Obstructive Pulmonary Disease (COPD) EENT Medical History: Denies: Cataracts Neurological Medical History: Denies: Hemorrhagic CVA, Ischemic CVA, Seizures Endocrine Medical History: Denies: Diabetes Mellitus Type 1, Diabetes Mellitus Type 2, Hyperthyroidism, Hypothyroidism Renal/ Medical History: Denies: Chronic Kidney Disease, Nephrolithiasis Malignancy Medical History: Reports: Brain Cancer GI Medical History: Denies: Cirrhosis, Hepatitis Musculoskeltal Medical History: Denies: Arthritis, Gout Skin Medical History: Denies: Eczema, Psoriasis Psychiatric Medical History: Reports: Depression Denies: Alcohol Dependency, Substance Abuse, Tobacco Dependency Traumatic Medical History: Reports: None Hematology: Denies: Anemia, Bleeding Tendencies Infectious Medical History: Reports: None Past Surgical History Past Surgical History: Reports: Cholecystectomy, Orthopedic Surgery - right wrist, right hand 4th digit mass removal, Other - 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 Social History Information Source: Patient Lives with: Spouse/Significant other Smoking Status: Former Smoker Frequency of Alcohol Use: Rare Hx Recreational Drug Use: No Drugs: None Hx Prescription Drug Abuse: No - Advance Directive Resuscitation Status: Full Code Surrogate healthcare decision maker:: Jay Jay Hammonds Family History Parental Family History Reviewed: Yes Children Family History Reviewed: No Sibling(s) Family History Reviewed.: Yes Medication/Allergy Home Medications: Ondansetron [Zofran Odt 4 mg Tablet] 1 tab PO Q8H PRN #15 tab.rapdis 09/24/18 Duloxetine HCl [Cymbalta] 30 mg PO DAILY 09/26/18 Fosinopril Sodium [Monopril] 20 mg PO DAILY 09/26/18 Allergies/Adverse Reactions: No Known Allergies Allergy (Verified 09/26/18 00:31) Review of Systems Constitutional: PRESENT: chills, fever(s) Eyes: ABSENT: visual disturbances, other - Ocular pain Ears: ABSENT: hearing changes, other - Ear pain Nose, Mouth, and Throat: ABSENT: mouth pain, sore throat Cardiovascular: ABSENT: chest pain, palpitations Respiratory: ABSENT: cough, dyspnea Gastrointestinal: PRESENT: nausea, vomiting. ABSENT: abdominal pain, constipation, diarrhea Genitourinary: ABSENT: dysuria, hematuria Musculoskeletal: ABSENT: deformity, joint swelling Integumentary: ABSENT: pruritus, rash Neurological: PRESENT: confusion - Associated with fever. ABSENT: convulsions, focal weakness, memory loss Psychiatric: ABSENT: anxiety, depression Endocrine: ABSENT: cold intolerance, heat intolerance Hematologic/Lymphatic: ABSENT: easy bleeding, easy bruising Physical Exam Vital Signs: Temp Pulse Resp BP Pulse Ox 101.4 F H 95 22 H 139/86 H 95 09/26/18 04:50 09/26/18 00:40 09/26/18 05:01 09/26/18 05:01 09/26/18 05:01 Intake & Output 09/24/18 09/25/18 09/26/18 23:59 23:59 23:59 Intake Total 1000 Output Total 150 Balance 850 Weight 87.997 kg General appearance: PRESENT: no acute distress, cooperative Head exam: PRESENT: atraumatic, normocephalic Eye exam: ABSENT: conjunctival injection, scleral icterus Ear exam: PRESENT: normal external ear exam. ABSENT: drainage Mouth exam: PRESENT: dry mucosa, neck supple Neck exam: ABSENT: thyromegaly, tracheal deviation Respiratory exam: PRESENT: clear to auscultation kayla, symmetrical, unlabored Cardiovascular exam: PRESENT: RRR. ABSENT: clicks, gallop, rubs Pulses: PRESENT: normal radial pulses, normal dorsalis pedis pul Vascular exam: PRESENT: normal capillary refill. ABSENT: pallor GI/Abdominal exam: PRESENT: normal bowel sounds, soft Rectal exam: PRESENT: deferred Extremities exam: ABSENT: joint swelling, pedal edema Musculoskeletal exam: PRESENT: full ROM. ABSENT: deformity, dislocation, tenderness Neurological exam: PRESENT: alert, awake, CN II-XII grossly intact, other - mild confusion. ABSENT: motor sensory deficit Psychiatric exam: PRESENT: appropriate affect, normal mood Skin exam: PRESENT: dry, intact, warm. ABSENT: jaundice, rash, urticaria Results Laboratory Results: 09/26/18 01:05 09/26/18 01:05 09/26/18 09/26/18 09/26/18 01:05 01:05 01:05 WBC 6.1 RBC 4.58 Hgb 13.6 Hct 38.8 MCV 85 MCH 29.7 MCHC 35.0 RDW 14.3 H Plt Count 177 Seg Neutrophils % 71.4 Lymphocytes % 13.6 Monocytes % 14.1 H Eosinophils % 0.1 Basophils % 0.8 Absolute Neutrophils 4.4 Absolute Lymphocytes 0.8 Absolute Monocytes 0.9 Absolute Eosinophils 0.0 Absolute Basophils 0.0 VBG pH VBG pCO2 VBG HCO3 VBG Base Excess Sodium 130.0 L Potassium 3.8 Chloride 94 L Carbon Dioxide 28 Anion Gap 8 BUN 17 Creatinine 1.00 Est GFR ( Amer) > 60 Est GFR (Non-Af Amer) > 60 Glucose 127 H Lactic Acid 1.2 Calcium 8.9 Total Bilirubin 1.5 H AST 52 ALT 70 Alkaline Phosphatase 37 L C-Reactive Protein Total Protein 6.9 Albumin 4.1 Urine Color Urine Appearance Urine pH Ur Specific [place] Urine Protein Urine Glucose (UA) Urine Ketones Urine Blood Urine Nitrite Ur Leukocyte Esterase Urine WBC (Auto) Urine RBC (Auto) 09/26/18 09/26/18 09/26/18 01:05 01:05 01:55 WBC RBC Hgb Hct MCV MCH MCHC RDW Plt Count Seg Neutrophils % Lymphocytes % Monocytes % Eosinophils % Basophils % Absolute Neutrophils Absolute Lymphocytes Absolute Monocytes Absolute Eosinophils Absolute Basophils VBG pH 7.43 H VBG pCO2 45.7 VBG HCO3 29.6 VBG Base Excess 4.5 Sodium Potassium Chloride Carbon Dioxide Anion Gap BUN Creatinine Est GFR ( Amer) Est GFR (Non-Af Amer) Glucose Lactic Acid Calcium Total Bilirubin AST ALT Alkaline Phosphatase C-Reactive Protein < 5.0 Total Protein Albumin Urine Color YELLOW Urine Appearance CLEAR Urine pH 6.0 Ur Specific [place] 1.017 Urine Protein NEGATIVE Urine Glucose (UA) NEGATIVE Urine Ketones TRACE H Urine Blood SMALL H Urine Nitrite NEGATIVE Ur Leukocyte Esterase NEGATIVE Urine WBC (Auto) 0 Urine RBC (Auto) 3 Impressions: Chest X-Ray 09/26/18 00:00 IMPRESSION: No acute cardiopulmonary process copyright 2010 [employer]- All Rights Reserved Abdomen/Pelvis CT 09/26/18 02:23 IMPRESSION: Abundant stool in the colon. Small hiatal hernia. TECHNICAL DOCUMENTATION: Quality ID # 436: Final reports with documentation of one or more dose reduction techniques (e.g., Automated exposure control, adjustment of the mA and/or kV according to patient size, use of iterative reconstruction technique) copyright 2010 [employer]- All Rights Reserved Head CT 09/26/18 03:35 IMPRESSION: No acute intracranial abnormality. Assessment and Plan - Diagnosis (1) SIRS (systemic inflammatory response syndrome) Is this a current diagnosis for this admission?: Yes Plan: Patient has fever of uncertain etiology. Blood cultures were performed as well as attempted lumbar puncture. Patient will require a lumbar puncture under fluoroscopy if one will be obtained during his hospital course. Patient has no meningismal signs and the need for lumbar puncture will be determined by his daytime hospitalist. The patient will be continued on IV antibiotic and antiviral therapies until such time as it is appropriate to discontinue treatment if cultures are negative. (2) Fever Qualifiers: Fever type: unspecified Qualified Code(s): R50.9 - Fever, unspecified Is this a current diagnosis for this admission?: Yes Plan: Patient's fever will be managed with ibuprofen and or acetaminophen to provide adequate reduction of fever and patient comfort. Patient will be continued on antibiotic therapy initiated in the emergency room until such time as his cultures are negative to the satisfaction of his daytime hospitalist. (3) Dehydration Is this a current diagnosis for this admission?: Yes Plan: Patient's dehydration will be treated with IV fluid to replace vascular volume and electrolytes as required. (4) Altered mental status Qualifiers: Altered mental status type: delirium Qualified Code(s): R41.0 - Disorientation, unspecified Is this a current diagnosis for this admission?: Yes Plan: Patient's mental status will be monitored on a regular basis with daily physician exams and every 4 hours neuro checks. (5) Vomiting Qualifiers: Vomiting type: unspecified Vomiting Intractability: non-intractable Nausea presence: with nausea Qualified Code(s): R11.2 - Nausea with vomiting, unspecified Is this a current diagnosis for this admission?: Yes Plan: Patient will be treated with IV fluids and antiemetics utilizing Zofran 4 mg IV every 4 hours as needed for nausea or vomiting. Patient's electrolytes will be assessed on daily basis as will his CBC and a magnesium level. Patient will also receive morphine 2-4 mg IV every 2 hours as needed for pain on a sliding scale basis. - Time Time Spent with patient: 25-34 minutes Medications reviewed and adjusted accordingly: Yes Anticipated discharge: Home - Inpatient Certification Based on my medical assessment, after consideration of the patient's comorbidities, presenting symptoms, or acuity I expect that the services needed warrant INPATIENT care.: Yes I certify that my determination is in accordance with my understanding of Medicare's requirements for reasonable and necessary INPATIENT services [42 CFR 412.3e].: Yes Medical Necessity: Failure to Improve With Outpatient Therapy, Need Close Monitoring Due to Risk of Patient Decompensation, Need For IV Fluids, Need for Neurological Checks, Need for IV Antibiotics, Risk of Complication if Not Cared For in Hospital
[2018-09-26] MEDS: NORMAL SALINE IV SCH ×3 (07:09→22:31)
[2018-09-26] MEDS: ACYCLOVIR SODIUM IV SCH ×3 (07:09→22:31)
[2018-09-26] MEDS: HEPARIN SOD (PORCINE) 5,000 UNIT/ML 1 ML SYRINGE SUBCUT SCH ×3 (08:11→22:34)
--- NOTE | 2018-09-26 08:32 | EKG REPORT ---
SEVERITY:- BORDERLINE ECG - SINUS RHYTHM BORDERLINE PROLONGED QT INTERVAL : Confirmed by: Roxy Rogers MD 26-Sep-2018 08:31:12
[2018-09-26] MEDS ORDERED: VANCOMYCIN HCL 0 MG in DEXTROSE 5%-WATER 250 ML IV NR (08:45)
[2018-09-26] MEDS ORDERED: VANCOMYCIN HCL INJ 500 MG VIAL IV SCH (10:00)
[2018-09-26] MEDS: ACETAMINOPHEN 325 MG TABLET PO PRN ×2 (12:07→22:27)
[2018-09-26] MEDS: FAMOTIDINE INJ/PF 20 MG/2 ML SDV IV SCH ×2 (12:07→22:29)
[2018-09-26] MEDS ORDERED: KETOROLAC TROMETHAMINE INJ/PF 30 MG/1 ML SDV ONE (12:41)
[2018-09-26] MEDS: DULOXETINE HCL 30 MG CAPSULE.DR PO SCH (12:50)
[2018-09-26] MEDS: DOCUSATE SODIUM 100 MG CAPSULE PO SCH ×2 (12:50→17:30)
[2018-09-26] MEDS: ENALAPRIL MALEATE 10 MG TABLET PO SCH (12:56)
[2018-09-26] MEDS: IBUPROFEN 800 MG TABLET PO PRN (13:49)
[2018-09-26 15:36] LABS: APPEARANCE ALL TUBES CLEAR; CSF TUBE NUMBER 3
[2018-09-26 15:37] LABS: RED BLOOD CELL,CSF 4 /uL (0-10)
[2018-09-26 15:38] LABS: WHITE BLOOD CELL,CSF 91 /uL (0-5)
--- NOTE | 2018-09-26 15:40 | RADIOLOGY REPORT (SQ) ---
EXAM DESCRIPTION: LUMBAR PUNCTURE; FLUORO/NEEDLE PLACEMENT/SPINE COMPLETED DATE/TIME: 09/26/2018 3:28 pm REASON FOR STUDY: Patient with elevated temperature and confusion.; CONFUSION AND TEMPERATURE COMPARISON: None. FLUOROSCOPY TIME: 0.2 minutes 1 images saved to PACS. TECHNIQUE: Fluoroscopic guided lumbar puncture. LIMITATIONS: None. PROCEDURE: After written consent and assessment were obtained, the patient was brought into the fluo roscopy room and placed prone on the table. The patient's lower back was prepped in a sterile fashio n and an entry site was selected under live fluoroscopic guidance. The entry site was anesthetized wi th 1% lidocaine. A 22 gauge needle was advanced through the skin and into the thecal sac at the level of L3-4. Opening pressure was 26 bladder units. Closing pressure was 15 water units. After approx imately 19 ml was drained, the needle was removed and a sterile bandage was placed of the site. Spec imens were sent to the lab for testing. A fluoroscopic spot image was saved to PACS confirming level access. FINDINGS: Clear CSF IMPRESSION: Lumbar puncture under fluoroscopy. No immediate complication. COMMENT: Patient medication list reviewed: Yes- Quality ID# 130:Eligible professional attests to doc umenting in the medical record they obtained, updated, or reviewed the patient's current medications. . Quality ID 145: Final reports for procedures using fluoroscopy that document radiation exposure bronson lennie, or exposure time and number of fluorographic images (if radiation exposure indices are not avail able) TECHNICAL DOCUMENTATION: JOB ID: [id number] [employer]- All Rights Reserved Reading location - IP/workstation name: [email or web address]
[2018-09-26 15:44] LABS: GLUCOSE,CSF 49 mg/dL (40-70); PROTEIN,CSF 164 mg/dL (12-60)
[2018-09-26 15:55] LABS: MONONUCLEAR CELLS CSF 97 %; POLYMORPHONUCLEAR CELLS CSF 3 %
[2018-09-26] MEDS: VANCOMYCIN HCL 1,250 MG in DEXTROSE 5%-WATER 250 ML IV SCH (19:39)
--- NOTE | 2018-09-26 20:54 | Progress Note ---
Provider Note Provider Note: A.m. 09/26/2018-patient is afebrile at this time. Resting comfortably. Since they were unable to successfully perform a lumbar puncture I have ordered interventional radiology to attempt the procedure. Patient still has fine tremors. P.m. 09/26/2018-the patient did have elevated protein in his spinal fluid. There was a mild elevation in white blood cell as well. Spinal fluid Gram stain pending. The patient was more tremulous this afternoon. An MRI scan will be obtained to assess for aseptic meningitis.
--- NOTE | 2018-09-26 22:12 | RADIOLOGY REPORT (SQ) ---
EXAM DESCRIPTION: MR BRAIN WITHOUT THEN WITH IV CONTRAST COMPLETED DATE/TME: 09/26/2018 00:00 CLINICAL HISTORY: 67 years, Male, ? aseptic meningitis COMPARISON: CT brain 09/24/2018 TECHNIQUE: Unknown number Images stored on PACS. LIMITATIONS: None. FINDINGS: Sagittal midline anatomic structures demonstrate an unremarkable appearance to the pituitary and suprasellar regions. The globes are intact. Mucosal thickening of the ethmoid air cells bilaterally. Normal flow void in visualized intracranial vessels. The visualized cranial nerve complex these are unremarkable. There is no intra or extra-axial hemorrhage. Diffusion-weighted images are normal, without evidence for acute infarct. Post surgical changes with associated susceptibility artifact associated with the right posterior fossa. A few foci of increased FLAIR/T2 white matter signal in the periventricular and subcortical regions likely reflecting sequelae of minor small vessel ischemic change. Minor diffuse atrophy. No enhancing abnormality, mass, or midline shift. There is an area of encephalomalacia with CSF signal in the right posterior fossa likely reflecting sequelae of prior surgery. IMPRESSION: No MR evidence for acute intracranial abnormality. Postsurgical changes of the right posterior fossa, as above. Mild diffuse atrophy with minor small vessel ischemic change. Ethmoid sinusitis. copyright 2010 [employer]- All Rights Reserved
[2018-09-26] MEDS: CEFTRIAXONE 2 GM/D5W RTU 2 GM/50 ML RTUPB IV SCH (22:29)
[2018-09-27] MEDS ORDERED: LORAZEPAM INJ 2 MG/1 ML VIAL IV PRN (00:20)
[2018-09-27] MEDS: HEPARIN SOD (PORCINE) 5,000 UNIT/ML 1 ML SYRINGE SUBCUT SCH ×2 (06:14→14:33)
[2018-09-27] MEDS: NORMAL SALINE IV SCH ×2 (06:22→14:37)
[2018-09-27] MEDS: ACYCLOVIR SODIUM IV SCH ×2 (06:22→14:37)
[2018-09-27] MEDS: VANCOMYCIN HCL 1,250 MG in DEXTROSE 5%-WATER 250 ML IV SCH ×2 (06:27→17:23)
[2018-09-27 06:30] LABS: ABSOLUTE LYMPHOCYTES (AUTO) 0.6 10^3/uL (0.5-4.7); ABSOLUTE MONOCYTES (AUTO) 0.8 10^3/uL (0.1-1.4); ABSOLUTE NEUT (AUTO) 5.3 10^3/uL (1.7-8.2); BASOPHILS % (AUTO) 0.6 % (0-2); EOSINOPHILS % (AUTO) 0.4 % (0-6); HEMATOCRIT 39.5 % (37.9-51.0); LYMPHOCYTES % (AUTO) 9.5 % (13-45); MEAN CORPUSCULAR HEMOGLOBIN 30.1 pg (27.0-33.4); MEAN CORPUSCULAR HGB CONC 35.5 g/dL (32.0-36.0); MEAN CORPUSCULAR VOLUME 85 fl (80-97); MONOCYTES % (AUTO) 11.8 % (3-13); PLATELET COUNT 171 10^3/uL (150-450); RED BLOOD COUNT 4.66 10^6/uL (4.35-5.55); RED CELL DISTRIBUTION WIDTH 14.2 % (11.5-14.0); SEGMENTED NEUTROPHILS % (AUTO) 77.7 % (42-78); TOTAL CELLS COUNTED % (AUTO) 100 %; WHITE BLOOD COUNT 6.9 10^3/uL (4.0-10.5)
[2018-09-27 06:54] LABS: ANION GAP 9 (5-19); BLOOD UREA NITROGEN 14 mg/dL (7-20); CALCIUM 8.8 mg/dL (8.4-10.2); CARBON DIOXIDE 29 mmol/L (22-30); CHLORIDE 92 mmol/L (98-107); GLUCOSE 118 mg/dL (75-110); POTASSIUM 3.7 mmol/L (3.6-5.0); SODIUM 130.3 mmol/L (137-145)
[2018-09-27] MEDS: ACETAMINOPHEN 325 MG TABLET PO PRN ×2 (07:05→18:05)
[2018-09-27 07:09] LABS: FREE T3 3.16 pg/mL (2.77-5.27); FREE T4 (FREE THYROXINE) 1.01 ng/dL (0.78-2.19)
[2018-09-27 07:23] LABS: THYROID STIMULATING HORMONE 2.12 uIU/mL (0.47-4.68)
[2018-09-27] MEDS: IBUPROFEN 800 MG TABLET PO PRN (07:47)
[2018-09-27] MEDS ORDERED: LORAZEPAM INJ 2 MG/1 ML VIAL IV ONE (08:12)
[2018-09-27] MEDS ORDERED: HALOPERIDOL LACTATE INJ 5 MG/1 ML VIAL IV PRN (08:33)
[2018-09-27] MEDS ORDERED: HALOPERIDOL LACTATE INJ 5 MG/1 ML VIAL ONE (08:51)
--- NOTE | 2018-09-27 09:27 | PDOC TRANSFER SUMMARY ---
General Admission Date/PCP: 09/26/18 05:45 Resuscitation Status: Full Code - Transfer Diagnosis (1) Aseptic meningitis Is this a current diagnosis for this admission?: Yes Diagnosis Summary: [birth year]/27/[id number]-rqva-old male came in with fever of 5 days duration. At home he has a fever of 104 at the height of fevers E he is delirious at home. Also came in with complaints of nausea and vomitings. In the ER LP was tried but unsuccessful. Later on CT-guided LP was done in the meantime he was started on acyclovir, IV Rocephin, IV vancomycin. CT-guided LP shows protein of 164 WBC of 91 glucose of 49 RBC of 4. Gram stain was negative. Blood cultures are negative. Chest x-ray was negative. CT abdomen pelvis is negative. Urine analysis negative for infection. Patient current condition continued to det eriorate he is more tremulous more anxious confused this morning and difficulty in articulation and some difficulty swallowing the requested there is not to feed the patient because of the risk of aspiration. Patient was given Ativan around 3:00 this morning without any success he received Haldol 1 mg IV just a few minutes ago looks like it has helped him to calm him down. Examination this morning neck was stiff. Brudzinski sign Scans are negative. Had a fever of 102 this morning later on again 101. Receiving Tylenol and Motrin. Because of the changes in mental status I spoke to the neurologist in [facility], he agreed to see the patient once he is transferred up there and he requested me to talk to the hospitalist for admission. Spoke to the hospitalist Dr. Lazo she agreed to ta ke the patient there in medical floor. Appreciate all the help and is here from [facility]. (2) Altered mental status Is this a current diagnosis for this admission?: Yes Diagnosis Summary: A.m. 09/26/2018-patient is afebrile at this time. Resting comfortably. Since they were unable to successfully perform a lumbar puncture I have ordered interventional radiology to attempt the procedure. Patient still has fine tremors. P.m. 09/26/2018-the patient did have elevated protein in his spinal fluid. There was a mild elevation in white blood cell as well. Spinal fluid Gram stain pending. The patient was more tremulous this afternoon. An MRI scan will be obtained to assess for aseptic meningitis. 09/27/2018-CT head was negative for acute changes MRI of the brain was negative for acute changes. Patient was confused having uncontrollable tremors difficulty in articulation and questionable difficulty in swallowing. Neck was stiff on examination. And Brudzinski signs are negative. Because of the worsening altered mental status and acute encephalopathy most likely secondary to a septic meningitis transverse request was [facility] to [facility] on the hospitalist Dr. Lazo accepted the patient. (3) Vomiting Is this a current diagnosis for this admission?: Yes Diagnosis Summary: 09/27/2018 patient came in with a fever and vomitings associated nausea. Nausea vomiting's are resolved. - Transfer Medications Home Medications: Duloxetine HCl [Cymbalta] 30 mg PO DAILY 09/26/18 Fosinopril Sodium [Monopril] 20 mg PO DAILY 09/26/18 Transfer Medications: Current Medications Acetaminophen (Tylenol 325 Mg Tablet) 650 mg PO Q4HP PRN PRN Reason: For headache, pain or fever Stop: 10/26/18 06:02 Last Admin: 09/27/18 07:05 Dose: 650 mg Documented by: Al Hydrox/Mg Hydrox/Simethicone (Maalox Plus Susp 30 Udcup) 30 ml PO Q6HP PRN PRN Reason: HEARTBURN Stop: 10/26/18 05:47 Docusate Sodium (Colace 100 Mg Capsule) 100 mg PO BID [facility] Stop: 10/26/18 09:59 Last Admin: 09/26/18 17:30 Dose: 100 mg Documented by: Duloxetine HCl (Cymbalta 30 Mg Capsule.) 30 mg PO DAILY [facility] Stop: 10/26/18 09:59 Last Admin: 09/26/18 12:50 Dose: 30 mg Documented by: Enalapril Maleate (Vasotec 10 Mg Tablet) 10 mg PO DAILY [facility] Stop: 10/26/18 09:59 Last Admin: 09/26/18 12:56 Dose: 10 mg Documented by: Famotidine (Pepcid Inj/Pf 20 Mg/2 Ml Sdv) 20 mg IV Q12 [facility] Stop: 10/26/18 09:59 Last Admin: 09/26/18 22:29 Dose: 20 mg Documented by: Haloperidol Lactate (Haldol 5 Mg/Ml Inj 1 Ml Vial) 1 mg IV Q4HP PRN PRN Reason: RESTLESSNESS/AGITATION Stop: 10/27/18 08:32 Heparin Sodium (Porcine) (Heparin Inj 5,000 Units/Ml 1 Ml Syringe) 5,000 unit SUBCUT Q8 [facility] Stop: 10/26/18 05:59 Last Admin: 09/27/18 06:14 Dose: Not Given Documented by: Ceftriaxone Sodium/Dextrose (Rocephin Rtu 2 Gm/D5w 50 Ml Premix Bag) 2 gm in 50 mls @ 100 mls/hr IV Q12 [facility] Stop: 10/03/18 21:59 Last Infusion: 09/27/18 01:19 Dose: Infused Documented by: Acyclovir Sodium 880 mg/ (Sodium Chloride) 267.6 mls @ 267.6 mls/hr IV Q8 [facility] Stop: 10/03/18 05:59 Last Admin: 09/27/18 06:22 Dose: 267.6 mls/hr, 267.6 mls/hr Documented by: Dextrose/Lactated Ringer's (D5lr 1000 Ml Iv Soln) 1,000 mls @ 167 mls/hr IV CONTINUOUS PRN PRN Reason: THIS MED IS NOT "PRN" Stop: 10/26/18 06:30 Vancomycin HCl 1,250 mg/ (Dextrose) 250 mls @ 166.667 mls/hr IV Q12A [facility] Stop: 10/03/18 17:59 Last Admin: 09/27/18 06:27 Dose: 166.67 mls/hr, 166.67 mls/hr Documented by: Lorazepam (Ativan Inj 2 Mg/1 Ml Vial) 1 mg IV Q4HP PRN PRN Reason: ANXIETY Stop: 10/04/18 00:19 Last Admin: 09/27/18 02:17 Dose: 1 mg Documented by: Magnesium Hydroxide (Milk Of Magnesia 30 Ml Udcup) 30 ml PO HSP PRN PRN Reason: FOR CONSTIPATION Stop: 10/26/18 05:47 Morphine Sulfate (Morphine 10 Mg/Ml Inj) 0 mg IV Q2HP PRN; Protocol PRN Reason: Pain Per [facility] 5 point scale SD Stop: 10/03/18 06:02 Last Admin: 09/27/18 02:15 Dose: 3 mg Documented by: Ondansetron HCl (Zofran Inj/Pf 4 Mg/2 Ml Sdv) 4 mg IV Q4HP PRN PRN Reason: FOR NAUSEA/VOMITING Stop: 10/26/18 05:47 Last Admin: 09/26/18 12:07 Dose: 4 mg Documented by: Sodium Chloride (Saline Flush 2.5 Ml Monoject Prefil Syrin) 2.5 ml IV Q8 [facility] Stop: 10/26/18 05:59 Last Admin: 09/27/18 06:14 Dose: Not Given Documented by: Temazepam (Restoril 15 Mg Capsule) 15 mg PO HSP PRN PRN Reason: SLEEP OR INSOMNIA Stop: 10/03/18 05:47 Last Admin: 09/26/18 23:12 Dose: 15 mg Documented by: - Allergies Allergies/Adverse Reactions: No Known Allergies Allergy (Verified 09/26/18 00:31) - Diet/Activity Discharge Diet: Cardiac Hospital Course Hospital Course: 09[birth year]27[id number]-mxjs-old male admitted with fever of unknown origin yesterday morning. Started on IV Rocephin, IV vancomycin, IV acyclovir. CT head was ne gative for acute changes MRI of the brain was negative for acute changes. LP was turned protein is 164 WBC count is 91 Gram stain was negative. Blood cultures are negative. His mental status continue tube was during the hospital stay. More confused and more agitated difficulty in articulation and difficulty in swallowing and neck was stiff this morning. His symptoms not relieved by IV Ativan. Patient was given IV Haldol 5 minutes ago looks like is more relaxed now. As of the deterioration of the patient's mental condition discussed the care with the neurologist and widened and also the hospitalist agreed to take the patient dated today. Physical Exam Vital Signs: Temp Pulse Resp BP Pulse Ox 101 F H 93 20 174/91 H 91 L 09/27/18 08:37 09/27/18 07:35 09/27/18 07:35 09/27/18 07:35 09/27/18 07:35 Intake & Output 09/26/18 09/27/18 09/28/18 06:59 06:59 06:59 Intake Total 1050 3485.2 Output Total 150 1100 Balance 900 2385.2 Weight 87.997 kg 89 kg General appearance: PRESENT: severe distress Head exam: PRESENT: atraumatic Eye exam: PRESENT: PERRLA Neck exam: PRESENT: other - Neck was stiff on examination. Respiratory exam: PRESENT: clear to auscultation kayla. ABSENT: rales, rhonchi, wheezes Cardiovascular exam: PRESENT: tachycardia GI/Abdominal exam: PRESENT: normal bowel sounds, soft. ABSENT: distended, guarding, mass, organolmegaly, rebound, tenderness Extremities exam: PRESENT: full ROM. ABSENT: calf tenderness, clubbing, pedal edema Neurological exam: PRESENT: altered, other - Patient is confused agitated and has difficulty in speech and difficulty in swallowing. Psychiatric exam: PRESENT: appropriate affect, normal mood. ABSENT: homicidal ideation, suicidal ideation Results Laboratory Results: 09/27/18 06:00 09/27/18 06:00 09/26/18 09/26/18 09/27/18 14:19 14:19 06:00 WBC 6.9 RBC 4.66 Hgb 14.0 Hct 39.5 MCV 85 MCH 30.1 MCHC 35.5 RDW 14.2 H Plt Count 171 Seg Neutrophils % 77.7 Lymphocytes % 9.5 L Monocytes % 11.8 Eosinophils % 0.4 Basophils % 0.6 Absolute Neutrophils 5.3 Absolute Lymphocytes 0.6 Absolute Monocytes 0.8 Absolute Eosinophils 0.0 Absolute Basophils 0.0 Sodium Potassium Chloride Carbon Dioxide Anion Gap BUN Creatinine Est GFR ( Amer) Est GFR (Non-Af Amer) Glucose Calcium Magnesium TSH Free T4 Free T3 pg/mL Fluid Tube Number 3 CSF Volume 19.0 CSF Appearance CLEAR CSF Color CSF WBC 91 H CSF RBC 4 CSF Polymorphonuclear 3 CSF Glucose 49 CSF Total Protein 164 H 09/27/18 09/27/18 06:00 06:00 WBC RBC Hgb Hct MCV MCH MCHC RDW Plt Count Seg Neutrophils % Lymphocytes % Monocytes % Eosinophils % Basophils % Absolute Neutrophils Absolute Lymphocytes Absolute Monocytes Absolute Eosinophils Absolute Basophils Sodium 130.3 L Potassium 3.7 Chloride 92 L Carbon Dioxide 29 Anion Gap 9 BUN 14 Creatinine 0.93 Est GFR ( Amer) > 60 Est GFR (Non-Af Amer) > 60 Glucose 118 H Calcium 8.8 Magnesium 2.0 TSH 2.12 Free T4 1.01 Free T3 pg/mL 3.16 Fluid Tube Number CSF Volume CSF Appearance CSF Color CSF WBC CSF RBC CSF Polymorphonuclear CSF Glucose CSF Total Protein Impressions: Chest X-Ray 09/26/18 00:00 IMPRESSION: No acute cardiopulmonary process copyright 2011 [employer]- All Rights Reserved Guidance Fluoroscopy 09/26/18 00:00 IMPRESSION: Lumbar puncture under fluoroscopy. No immediate complication. Head MRI 09/26/18 00:00 IMPRESSION: No MR evidence for acute intracranial abnormality. Postsurgical changes of the right posterior fossa, as above. Mild diffuse atrophy with minor small vessel ischemic change. Ethmoid sinusitis. copyright 2010 [employer]- All Rights Reserved Abdomen/Pelvis CT 09/26/18 02:23 IMPRESSION: Abundant stool in the colon. Small hiatal hernia. TECHNICAL DOCUMENTATION: Quality ID # [id number]: Final reports with documentation of one or more dose reduction techniques (e.g., Automated exposure control, adjustment of the mA and/or kV according to patient size, use of iterative reconstruction technique) copyright 2010 [employer]- All Rights Reserved Head CT 09/26/18 03:35 IMPRESSION: No acute intracranial abnormality. Lumbar Puncture 09/26/18 10:00 IMPRESSION: Lumbar puncture under fluoroscopy. No immediate complication. Plan Discharge Plan: Patient is going to be transferred to [facility] . Time Spent: Greater than 30 Minutes
[2018-09-27] MEDS: FAMOTIDINE INJ/PF 20 MG/2 ML SDV IV SCH (10:25)
[2018-09-27] MEDS: DOCUSATE SODIUM 100 MG CAPSULE PO SCH ×2 (10:25→17:23)
[2018-09-27] MEDS: ENALAPRIL MALEATE 10 MG TABLET PO SCH (10:25)
[2018-09-27] MEDS: CEFTRIAXONE 2 GM/D5W RTU 2 GM/50 ML RTUPB IV SCH (10:25)
[2018-09-27] MEDS: DULOXETINE HCL 30 MG CAPSULE.DR PO SCH (10:25)
[2018-09-27] MEDS ORDERED: MORPHINE SULFATE 10 MG/ML INJ IV PRN ×3 (14:48→14:50)
[2018-09-27 20:28] VITALS: BP 147/86
[2018-09-28 15:14] LABS: ANTINUCLEAR ANTIBODIES Negative (Negative)
== END 2018-09-27 21:03 | disposition short-term general hospital (02) | DRG 98 ==
LOC: ER 00:31 → EH 05:45 → 4S 11:51
PROVIDERS: ADMIT Emergency Medicine; ATTEND Emergency Medicine
PROC: 009U3ZX Drainage of Spinal Canal, Percutaneous Approach, Diagnostic (ICD-10-PCS; principal; 2018-09-26)
PROC: B01BZZZ Fluoroscopy of Spinal Cord (ICD-10-PCS; 2018-09-26)
PROC: 00JU3ZZ Inspection of Spinal Canal, Percutaneous Approach (ICD-10-PCS; 2018-09-26)
DX: G03.0 Nonpyogenic meningitis (principal); G93.40 Encephalopathy, unspecified; I10 Essential (primary) hypertension; R25.1 Tremor, unspecified; R50.9 Fever, unspecified; F32.9 Major depressive disorder, single episode, unspecified; E86.0 Dehydration
CPT/HCPCS: 36415; 62270; 70450; 70553; 71045; 74176; 77003; 80048; 80053; 81001; 82803; 82945; 83605; 83735; 84157; 84439; 84443; 84481; 85025; 85610; 85652; 85730; 86038; 86140; 87040; 87070; 87077; 87086; 87205; 87804; 89050; 93005; 93010; 96361; 96365; 96375; 99285; J0133; J0696; J1630; J1644; J1885; J2060; J2270; J2405; J3360; J3370; J3490; J7030; J7050; J7060; S0028